=== PATIENT | female | born 1960 | race Caucasian/White ===

== ENCOUNTER 2021-11-06 08:03 | Day surgery (SDC) | payer OTHER ==
[2021-11-04 11:49] LABS: COVID AG,FIA SOURCE NASAL SWAB
[~2021-11-06] VITALS: Ht 160 cm; Wt 129.5 kg
[~2021-11-06 08:03] MED LIST: DOXE50CA4 PO; DOXY100C5 PO; DULO-113 PO; OXYC1TAB6 PO; SODIUM CHLORIDE 0.9% 1,000 ML IV ONE; SODIUM CHLORIDE 0.9% 1,000 ML ONE; TRAZ-257 PO; UMEC62.5 IH
[2021-11-06] MEDS ORDERED: LIDOCAINE/PF 2% 5 ML VIAL IM ONE (12:00)
[2021-11-06] MEDS ORDERED: PROPOFOL 1% 20 ML VIAL IVP ONE (12:00)
== END 2021-11-06 11:55 | disposition home or self-care (01) ==
LOC: SURGERY 08:03
PROVIDERS: ATTEND Internal Medicine Gastroenterology
DX: K29.70 Gastritis, unspecified, without bleeding (principal); K25.9 Gastric ulcer, unspecified as acute or chronic, without hemorrhage or perforation; K44.9 Diaphragmatic hernia without obstruction or gangrene; K70.30 Alcoholic cirrhosis of liver without ascites; J44.9 Chronic obstructive pulmonary disease, unspecified; F32.9 Major depressive disorder, single episode, unspecified; Z86.19 Personal history of other infectious and parasitic diseases; Z79.899 Other long term (current) drug therapy; Z98.890 Other specified postprocedural states; Z87.891 Personal history of nicotine dependence; G47.00 Insomnia, unspecified
CPT/HCPCS: 87426; 43239; 88305; 88312; 88313; C9803; C1769; J2704; J3490; J7030

== ENCOUNTER 2022-01-15 10:33 | Day surgery (SDC) | payer OTHER ==
[~2022-01-15] VITALS: Ht 160 cm; Wt 122.7 kg
[2022-01-15 11:32] LABS: COVID AG,FIA SOURCE NASAL SWAB
[2022-01-15] MEDS ORDERED: PROPOFOL 1% 20 ML VIAL IVP ONE (12:00)
[2022-01-15] MEDS ORDERED: LIDOCAINE/PF 2% 5 ML VIAL IM ONE (12:00)
== END 2022-01-15 14:40 | disposition home or self-care (01) ==
LOC: SURGERY 10:33
PROVIDERS: ATTEND Internal Medicine Gastroenterology
DX: K29.50 Unspecified chronic gastritis without bleeding (principal); K44.9 Diaphragmatic hernia without obstruction or gangrene; E66.9 Obesity, unspecified; I10 Essential (primary) hypertension; F32.9 Major depressive disorder, single episode, unspecified; Z79.899 Other long term (current) drug therapy; Z98.890 Other specified postprocedural states
CPT/HCPCS: 43239; 87426; C9803; C1769; J2704; J3490; J7030